=== PATIENT | male | born 1935 | race Two or more races ===

== ENCOUNTER → 2016-12-01 | Outpatient (CLI) | payer MEDICARE | LOC: OD 11:29 | PROVIDERS: ATTEND Physician Assistant | DX: J44.9 Chronic obstructive pulmonary disease, unspecified (principal) | CPT/HCPCS: 71020 ==

== ENCOUNTER → 2017-04-26 | Outpatient (CLI) | payer OTHER ==
[2017-04-26 17:53] LABS: ABSOLUTE BASOPHILS # (AUTO) 0.1 10^3/uL (0.0-0.2); ABSOLUTE EOSINOPHILS # (AUTO) 0.3 10^3/uL (0.0-0.6); ABSOLUTE LYMPHOCYTES (AUTO) 2.4 10^3/uL (0.5-4.7); ABSOLUTE MONOCYTES (AUTO) 1.1 10^3/uL (0.1-1.4); ABSOLUTE NEUT (AUTO) 7.4 10^3/uL (1.7-8.2); BASOPHILS % (AUTO) 0.7 % (0-2); EOSINOPHILS % (AUTO) 2.5 % (0-6); HEMATOCRIT 44.1 % (37.9-51.0); HEMOGLOBIN 14.4 g/dL (13.5-17.0); HGB HCT DIFFERENCE -0.9; LYMPHOCYTES % (AUTO) 21.2 % (13-45); MEAN CORPUSCULAR HEMOGLOBIN 31.1 pg (27.0-33.4); MEAN CORPUSCULAR HGB CONC 32.7 g/dL (32.0-36.0); MEAN CORPUSCULAR VOLUME 95 fl (80-97); MONOCYTES % (AUTO) 9.7 % (3-13); RED BLOOD COUNT 4.63 10^6/uL (4.35-5.55); RED CELL DISTRIBUTION WIDTH 14.6 % (11.5-14.0); SEGMENTED NEUTROPHILS % (AUTO) 65.9 % (42-78); WHITE BLOOD COUNT 11.2 10^3/uL (4.0-10.5)
--- NOTE | 2017-04-26 18:05 | RADIOLOGY REPORT (SQ) ---
EXAM DESCRIPTION: FOOT LEFT COMPLETE COMPLETED DATE/TIME: 04/26/2017 5:23 pm REASON FOR STUDY: PAIN IN LEFT FOOT M79.672 PAIN IN LEFT FOOT COMPARISON: None. NUMBER OF VIEWS: Three views. TECHNIQUE: AP, lateral and oblique radiographic images acquired of the left foot. LIMITATIONS: None. FINDINGS: MINERALIZATION: Normal. BONES: No acute fracture or dislocation. No worrisome bone lesions. JOINTS: No effusions. SOFT TISSUES: No soft tissue swelling. No foreign body. OTHER: No other significant finding. IMPRESSION: NEGATIVE STUDY OF THE LEFT FOOT. NO RADIOGRAPHIC EVIDENCE OF ACUTE INJURY. TECHNICAL DOCUMENTATION: JOB ID: [id number] [employer]- All Rights Reserved
[2017-04-26 18:12] LABS: ANION GAP 8 (5-19); BLOOD UREA NITROGEN 24 mg/dL (7-20); CALCIUM 10.3 mg/dL (8.4-10.2); CARBON DIOXIDE 30 mmol/L (22-30); CHLORIDE 101 mmol/L (98-107); CREATININE RESULT 1.15 mg/dL (0.52-1.25); GLUCOSE 85 mg/dL (75-110); POTASSIUM 4.7 mmol/L (3.6-5.0); SODIUM 139.2 mmol/L (137-145); URIC ACID 6.8 mg/dL (3.5-8.5)
== END ==
LOC: OD 16:56
PROVIDERS: ATTEND Family Medicine
DX: M79.672 Pain in left foot (principal)
CPT/HCPCS: 36415; 80048; 84550; 85025

== ENCOUNTER → 2017-07-21 | Outpatient (CLI) | payer OTHER ==
--- NOTE | 2017-07-21 12:14 | RADIOLOGY REPORT (SQ) ---
EXAM DESCRIPTION: HIP RIGHT AP/LATERAL COMPLETED DATE/TIME: 07/21/2017 12:05 pm REASON FOR STUDY: PAIN IN RIGHT HIP M25.551 PAIN IN RIGHT HIP COMPARISON: None. NUMBER OF VIEWS: Two views. TECHNIQUE: AP pelvis and additional frog-leg view of the right hip. LIMITATIONS: None. FINDINGS: MINERALIZATION: Normal. RIGHT HIP: No fracture or dislocation. No worrisome bone lesions. LEFT HIP: No fracture or dislocation. No worrisome bone lesions. PUBIS AND ISCHIUM: No fracture. PELVIS: No fracture. SACRUM: No fracture or dislocation. No worrisome bone lesions. LOWER LUMBAR SPINE: No fracture or dislocation. No worrisome bone lesions. No significant disc disea se. SOFT TISSUES: No findings. OTHER: No other significant finding. IMPRESSION: NEGATIVE STUDY OF THE RIGHT HIP. NO RADIOGRAPHIC EVIDENCE OF ACUTE INJURY. TECHNICAL DOCUMENTATION: JOB ID: [id number] [employer]- All Rights Reserved
--- NOTE | 2017-07-21 12:15 | RADIOLOGY REPORT (SQ) ---
EXAM DESCRIPTION: FEMUR RIGHT COMPLETED DATE/TIME: 07/21/2017 12:05 pm REASON FOR STUDY: PAIN IN RIGHT HIP M25.551 PAIN IN RIGHT HIP COMPARISON: None. NUMBER OF VIEWS: Two views. TECHNIQUE: Two radiographic images acquired of the right femur to include hip and knee in at least o ne projection. LIMITATIONS: None. FINDINGS: MINERALIZATION: Normal. BONES: No acute fracture. No worrisome bone lesions. SOFT TISSUES: No obvious swelling or foreign body. OTHER: No other significant finding. IMPRESSION: NEGATIVE STUDY OF THE RIGHT FEMUR. NO RADIOGRAPHIC EVIDENCE OF ACUTE INJURY. TECHNICAL DOCUMENTATION: JOB ID: [id number] [employer]- All Rights Reserved
== END ==
LOC: OD 11:33
PROVIDERS: ATTEND Family Medicine
DX: M25.551 Pain in right hip (principal)

== ENCOUNTER → 2017-08-08 | Outpatient (CLI) | payer MEDICARE ==
--- NOTE | 2017-08-08 13:58 | RADIOLOGY REPORT (SQ) ---
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 TECHNIQUE: CT scan of the chest performed using helical scanning technique with dynamic intravenous contrast injection. Images reviewed with lung, soft tissue and bone windows. Reconstructed coronal and sagittal MPR images reviewed. Additional 3 dimensional post-processing performed to develop Maximal Intensity Projection images (GA P). All images stored on PACS. All CT scanners at this facility use dose modulation, iterative reconstruction, and/or weight based d osing when appropriate to reduce radiation dose to as low as reasonably achievable (ALARA). [facility]: Dose Right [facility]: CareDose [facility]: Dose Right [facility]: Teradose 4D [facility]: Zin.gl CONTRAST TYPE AND DOSE: See combined report. Contrast bolus optimized for the aorta. RENAL FUNCTION: See combined report. RADIATION DOSE: . LIMITATIONS: Motion. FINDINGS: LUNGS AND PLEURA: Paraseptal emphysema. No suspicious nodules. AORTA AND GREAT VESSELS: Dilated ascending aorta 4.4 cm. No dissection. HEART: No pericardial effusion. No significant coronary artery calcifications. PULMONARY ARTERIES: No emboli visualized in the main pulmonary arteries or the segmental branches. HILAR AND MEDIASTINAL STRUCTURES: No identified masses or abnormal nodes. HARDWARE: None in the chest. UPPER ABDOMEN: See separate report of the CT of the abdomen. THYROID AND OTHER SOFT TISSUES: No masses. No adenopathy. BONES: No acute or significant finding. 3D MIPS: Confirm above findings. OTHER: No other significant finding. IMPRESSION: Dilated ascending aorta 4.4 cm. No dissection. COMMENT: Quality ID # 436: Final reports with documentation of one or more dose reduction techniques (e.g., Automated exposure control, adjustment of the mA and/or kV according to patient size, use of iterative reconstruction technique) TECHNICAL DOCUMENTATION: JOB ID: [id number] [employer]- All Rights Reserved
--- NOTE | 2017-08-08 14:12 | RADIOLOGY REPORT (SQ) ---
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 TECHNIQUE: CT scan of the abdominal aorta extending to the iliac bifurcation performed with intraven ous contrast using helical scanning technique with dynamic intravenous contrast injection. Images rev iewed with lung, soft tissue, and bone windows. Reconstructed coronal and sagittal MPR images reviewe d. All images stored on PACS. Advanced 3D imaging as volume rendering, MIPS, SSD performed? yes All CT scanners at this facility use dose modulation, iterative reconstruction, and/or weight based d osing when appropriate to reduce radiation dose to as low as reasonably achievable (ALARA). [facility]: Dose Right [facility]: CareDose [facility]: Dose Right [facility]: Teradose 4D [facility]: [employer] CONTRAST TYPE AND DOSE: contrast/concentration: Isovue 370.00 mg/ml; Total Contrast Delivered: 50.0 ml; Total Saline Delivered: 75.0 ml RENAL FUNCTION: Creatinine 1.3 LIMITATIONS: None. FINDINGS: AORTA AND VESSELS: 3 cm infrarenal aortic aneurysm. Right common iliac artery 1.6 cm. LUNG BASES: See separate report. LIVER: Normal size. No masses or dilated ducts. SPLEEN: Normal size. No focal lesions. PANCREAS: No masses. No significant calcifications. No adjacent inflammation or peripancreatic fluid collections. Pancreatic duct not dilated. GALLBLADDER: Surgically absent. ADRENAL GLANDS: No significant masses or asymmetry. RIGHT KIDNEY AND URETER: Previously described angiomyolipoma now measures about 5.3 cm. Cortical cys ts lower pole. LEFT KIDNEY AND URETER: No mass, calculi or urinary tract obstruction. RETROPERITONEUM: No retroperitoneal adenopathy, hemorrhage or masses. BOWEL AND PERITONEAL CAVITY: No masses or inflammatory changes. No free fluid or peritoneal masses. APPENDIX: Surgically absent. ABDOMINAL WALL: No masses. No hernias. BONY STRUCTURES: No significant or acute findings. 3-D IMAGING: Confirms the above findings. OTHER: No other significant finding. IMPRESSION: 1. 3 cm infrarenal aortic aneurysm. 2. 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 Urology consultation might be considered. TECHNICAL DOCUMENTATION: JOB ID: [id number] Quality ID # [id number]: Final reports with documentation of one or more dose reduction techniques (e.g., Au tomated exposure control, adjustment of the mA and/or kV according to patient size, use of iterative reconstruction technique) 2010 [employer]- All Rights Reserved
== END ==
LOC: RAD 11:34
PROVIDERS: ATTEND Family Medicine
DX: I71.2 Thoracic aortic aneurysm, without rupture (principal)
CPT/HCPCS: 71275; 74174

== ENCOUNTER 2017-10-28 15:45 | Emergency (ER) | payer MEDICARE ==
[2017-10-28 15:58] VITALS: BP 173/91
--- NOTE | 2017-10-28 16:15 | ER Document Report ---
HPI - HPI Patient complains to provider of: Right hip pain Onset: Other Quality of pain: Achy - 3 months, Burning, Throbbing Pain Level: 5 Context: 82-year-old male patient of Dr. Cheatham complaining of lateral right hip pain which radiates to posterior left thigh. It started 3 months ago. Physical therapy 5 visits resolved the pain but it reoccurred last week. He saw Dr. Cheatham yesterday who ordered a hip x-ray which he has not done yet and prescribed tramadol and Flexeril which did not help last night. There has been no injury. 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 He had a renal ultrasound to the hospital today. No fever. No rash. No saddle anesthesia. Associated Symptoms: None Exacerbated by: Movement Relieved by: Denies Similar symptoms previously: Yes Recently seen / treated by doctor: Yes - ROS ROS below otherwise negative: Yes Systems Reviewed and Negative: Yes All other systems reviewed and negative - MUSCULOSKELETAL Musculoskeletal: REPORTS: Extremity pain Past Medical History - General Information source: Patient, Relative - Son - Social History Smoking Status: Current Every Day Smoker Frequency of alcohol use: None Drug Abuse: None Lives with: Family Family History: Reviewed & Not Pertinent Patient has suicidal ideation: No Patient has homicidal ideation: No Pulmonary Medical History: Reports: Hx COPD Renal/ Medical History: Reports: Other - Right benign renal tumor. Denies: Hx Peritoneal Dialysis Surgical Hx: Negative Vertical Provider Document - CONSTITUTIONAL Agree With Documented VS: Yes Exam Limitations: No Limitations General Appearance: No Apparent Distress - INFECTION CONTROL TRAVEL OUTSIDE OF THE [place] IN LAST 30 DAYS: No - NECK Neck: Supple - RESPIRATORY Respiratory: Breath Sounds Normal, No Respiratory Distress O2 Sat by Pulse Oximetry: 97 - CARDIOVASCULAR Cardiovascular: Regular Rate, Regular Rhythm - GI/ABDOMEN Gastrointestinal: Abdomen Soft, Abdomen Non-Tender - MUSCULOSKELETAL/EXTREMETIES Musculoskeletal/Extremeties: MAEW, FROM, Tender - laeteral right hip soft tissue above the great trochantur - NEURO Level of Consciousness: Awake, Alert Motor/Sensory: No Motor Deficit, No Sensory Deficit Notes: DP pulses 1+ bilateral, n/v intact. - DERM Integumentary: Warm, Dry, No Rash Course - Re-evaluation Re-evalutation: 10/28/17 17:27 basically negative hip xray, minimal joint space narrowing both hips. mild l spine arthritis . 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
--- NOTE | 2017-10-28 17:06 | RADIOLOGY REPORT (SQ) ---
EXAM DESCRIPTION: HIP RIGHT AP/LATERAL COMPLETED DATE/TIME: 10/28/2017 4:49 pm REASON FOR STUDY: right hip pain COMPARISON: 07/21/2017 NUMBER OF VIEWS: Two views. TECHNIQUE: AP pelvis and additional frog-leg view of the right hip. LIMITATIONS: None. FINDINGS: MINERALIZATION: Normal. RIGHT HIP: No fracture or dislocation. No worrisome bone lesions. Minimal joint space loss centrall y. No other significant arthritic change. LEFT HIP: No fracture or dislocation. No worrisome bone lesions. Minimal central joint space loss. No other significant arthritic change. PUBIS AND ISCHIUM: No fracture. PELVIS: No fracture. SACRUM: No fracture or dislocation. No worrisome bone lesions. LOWER LUMBAR SPINE: No fracture or dislocation. No worrisome bone lesions. Mild degenerative changes involving the lower lumbar. SOFT TISSUES: No findings. OTHER: No other significant finding. IMPRESSION: 1. Minimal central joint space loss otherwise negative right hip. 2. Mild degenerative changes involving the lower lumbar spine. TECHNICAL DOCUMENTATION: JOB ID: [id number] [employer]- All Rights Reserved Reading location - IP/workstation name: [email or web address]
[2017-10-28] MEDS ORDERED: HYDROCODONE/ACETAMINOPHEN 5-325 MG TABLET PO ONE (17:27)
== END 2017-10-28 17:53 | disposition home or self-care (01) ==
LOC: ER 15:45
DX: M25.551 Pain in right hip (principal); M46.96 Unspecified inflammatory spondylopathy, lumbar region; M16.0 Bilateral primary osteoarthritis of hip; M79.652 Pain in left thigh; Z79.899 Other long term (current) drug therapy; F17.200 Nicotine dependence, unspecified, uncomplicated
CPT/HCPCS: 99283; 73502; A9270

== ENCOUNTER → 2017-10-28 | Outpatient (CLI) | payer MEDICARE ==
--- NOTE | 2017-10-28 17:31 | RADIOLOGY REPORT (SQ) ---
EXAM DESCRIPTION: U/S RETROPERITON (RENAL/AORTA) COMPLETED DATE/TIME: 10/28/2017 3:59 pm REASON FOR STUDY: R94.4 ABNORMAL RESULTS OF KIDNEY FUNCTION STUDIES R94.4 ABNORMAL RESULTS OF KIDNE Y FUNCTION STUDIES COMPARISON: CT abdomen dated 08/08/2017 and MRI kidneys dated 12/14/2007. TECHNIQUE: Dynamic and static grayscale images acquired of the kidneys and bladder and recorded on P ACS. Additional selected color Doppler and spectral images recorded. LIMITATIONS: None. FINDINGS: RIGHT KIDNEY: Normal size. Normal echogenicity. Large echogenic mass measuring 7.7 cm . Multiple anechoic cysts, the largest measuring 4.0 cm. No hydronephrosis. No calcifications. LEFT KIDNEY: Normal size. Normal echogenicity. Multiple anechoic cysts, the largest measuring 1. 2 cm. No hydronephrosis. No calcifications. BLADDER: No masses. OTHER FINDINGS: No other significant finding. IMPRESSION: 1. 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 THIS MASS CONTINUES INCREASED IN SIZ E. CURRENTLY THE MASS MEASURES 7.7 CM WITH PRIOR MEASUREMENT IN AUGUST 2017 OF 5.3 CM. IF NOT PRE VIOUSLY DONE, UROLOGIC CONSULTATION SHOULD BE CONSIDERED. 2. MULTIPLE CORTICAL CYSTS IN BOTH KIDNEYS. 3. NO HYDRONEPHROSIS. TECHNICAL DOCUMENTATION: JOB ID: [id number] [employer]- All Rights Reserved Reading location - IP/workstation name: [email or web address]
== END ==
LOC: RAD 15:58
PROVIDERS: ATTEND Family Medicine
DX: D17.71 Benign lipomatous neoplasm of kidney (principal); Q61.02 Congenital multiple renal cysts
CPT/HCPCS: 76770

== ENCOUNTER 2017-11-10 17:23 | Emergency (ER) | payer MEDICARE ==
--- NOTE | 2017-11-10 17:55 | ER Document Report ---
ED Medical Screen (RME) - General Chief Complaint: Dizziness Stated Complaint: POSSIBLE STROKE Time Seen by Provider: 11/10/17 17:32 Notes: RME DISCLOSURE I have seen this patient as part of a Rapid Medical Evaluation and, if applicable, placed any initially appropriate orders. The patient will be seen and fully evaluated, including a full history and physical exam, by a provider ( in Main ED or Fast Track) when a room becomes available. 82M sent over here from Dr Cody Linares's office for stroke evaluation. Pt family states he has had RUE weakness since yesterday so when they saw Dr Meredith Linares in the office today, he had concern for a stroke and sent them here to ED. TRAVEL OUTSIDE OF THE U.S[place] IN LAST 30 DAYS: No - Related Data Allergies/Adverse Reactions: No Known Allergies Allergy (Unverified 11/10/17 17:26) Past Medical History Pulmonary Medical History: Reports: Hx COPD Physical Exam - Vital signs Vitals: Temp Pulse Resp BP Pulse Ox 97.7 F 70 16 163/94 H 96 11/10/17 17:37 11/10/17 17:37 11/10/17 17:37 11/10/17 17:37 11/10/17 17:37 Course - Vital Signs Vital signs: Temp Pulse Resp BP Pulse Ox 97.7 F 70 16 163/94 H 96 11/10/17 17:37 11/10/17 17:37 11/10/17 17:37 11/10/17 17:37 11/10/17 17:37
--- NOTE | 2017-11-10 18:30 | RADIOLOGY REPORT (SQ) ---
EXAM DESCRIPTION: CT HEAD WITHOUT COMPLETED DATE/TIME: 11/10/2017 6:09 pm REASON FOR STUDY: RUE weakness COMPARISON: None. TECHNIQUE: Axial images acquired through the brain without intravenous contrast. Images reviewed wi th bone, brain and subdural windows. Images stored on PACS. All CT scanners at this facility use dose modulation, iterative reconstruction, and/or weight based d osing when appropriate to reduce radiation dose to as low as reasonably achievable (ALARA). [facility]: Dose Right [facility]: CareDose [facility]: Dose Right [facility]: Teradose 4D [facility]: Smart [employer] RADIATION DOSE: CT Rad equipment meets quality standard of care and radiation dose reduction techniq ues were employed. CTDIvol: 64.6 mGy. DLP: 1163 mGy-cm. mGy. LIMITATIONS: None. FINDINGS: VENTRICLES: Prominent. CEREBRUM: No masses. No hemorrhage. No midline shift. Areas of low density in the white matter mos t likely due to chronic micro-vascular ischemic change. No evidence for acute infarction. CEREBELLUM: No masses. No hemorrhage. No alteration of density. There is a small focal relative lo w density area at the level of the brainstem on the left which could represent a small lacunar infarc t. EXTRAAXIAL SPACES: Mild age-related involutional change. No fluid collections. No masses. ORBITS AND GLOBE: No intra- or extraconal masses. Normal contour of globe without masses. CALVARIUM: No fracture. PARANASAL SINUSES: No fluid or mucosal thickening. SOFT TISSUES: No mass or hematoma. OTHER: No other significant finding. IMPRESSION: MILD CHRONIC CHANGES OF ATROPHY AND MICROVASCULAR ISCHEMIA. There is a small focal rela tive low density area at the level the brainstem on the left which could represent a small lacunar in farct. Other findings as noted above EVIDENCE OF ACUTE STROKE: NO. TECHNICAL DOCUMENTATION: JOB ID: [id number] Quality ID # [id number]: Final reports with documentation of one or more dose reduction techniques (e.g., Au tomated exposure control, adjustment of the mA and/or kV according to patient size, use of iterative reconstruction technique) 2010 [employer]- All Rights Reserved Reading location - IP/workstation name: [email or web address]
[2017-11-10 18:56] LABS: ABSOLUTE BASOPHILS # (AUTO) 0.1 10^3/uL (0.0-0.2); ABSOLUTE EOSINOPHILS # (AUTO) 0.3 10^3/uL (0.0-0.6); ABSOLUTE LYMPHOCYTES (AUTO) 2.2 10^3/uL (0.5-4.7); ABSOLUTE MONOCYTES (AUTO) 1.1 10^3/uL (0.1-1.4); ABSOLUTE NEUT (AUTO) 7.8 10^3/uL (1.7-8.2); BASOPHILS % (AUTO) 0.5 % (0-2); EOSINOPHILS % (AUTO) 2.3 % (0-6); HEMATOCRIT 43.5 % (37.9-51.0); HEMOGLOBIN 14.1 g/dL (13.5-17.0); LYMPHOCYTES % (AUTO) 19.3 % (13-45); MEAN CORPUSCULAR HEMOGLOBIN 30.1 pg (27.0-33.4); MEAN CORPUSCULAR HGB CONC 32.4 g/dL (32.0-36.0); MEAN CORPUSCULAR VOLUME 93 fl (80-97); MONOCYTES % (AUTO) 9.6 % (3-13); PLATELET COUNT 181 10^3/uL (150-450); RED BLOOD COUNT 4.68 10^6/uL (4.35-5.55); RED CELL DISTRIBUTION WIDTH 14.6 % (11.5-14.0); SEGMENTED NEUTROPHILS % (AUTO) 68.3 % (42-78); TOTAL CELLS COUNTED % (AUTO) 100 %; WHITE BLOOD COUNT 11.5 10^3/uL (4.0-10.5)
[2017-11-10 19:14] LABS: INTERNATIONAL RATION (INR) 0.92
[2017-11-10 19:15] LABS: PARTIAL THROMBOPLASTIN TIME 36.8 SEC (23.5-35.8)
--- NOTE | 2017-11-10 19:24 | ER Document Report ---
ED General - General Chief Complaint: Dizziness Stated Complaint: POSSIBLE STROKE Time Seen by Provider: 11/10/17 17:32 Information source: Patient, Relative - Patient's daughter TRAVEL OUTSIDE OF THE U.[place] IN LAST 30 DAYS: No - HPI Patient complains to provider of: Off balance/decreased sensation and strength right upper extremity Onset: Yesterday - 6 PM Onset/Duration: Gradual Quality of pain: No pain Associated symptoms: Other - Patient was ambulating with a cane and fell once last night no LOC Exacerbated by: Movement Relieved by: Denies Similar symptoms previously: No Recently seen / treated by doctor: No - MD Dr. Musa Kidd Notes: Patient has been off balance since 6:00 last night. He ambulates with a cane because of right lower extremity weakness which is been chronic for the last few months. Patient fell once last night no loss of consciousness. He also complains of right upper extremity weakness and decreased sensation. A few months back patient had a tumor removed from 1 of his kidneys at [facility]. Since then his right lower extremity weakness has increased. Patient does smoke on a continuous basis and has for many years. He had a remote stroke in the past while he was living in [place] he has no residual deficits from that. Patient has a history of hypertension. - Related Data Allergies/Adverse Reactions: No Known Allergies Allergy (Unverified 11/10/17 17:26) Past Medical History - General Information source: Patient, Relative, [facility] Records - Social History Smoking Status: Current Every Day Smoker Cigarette use (# per day): Yes Smoking Education Provided: Yes Frequency of alcohol use: None Drug Abuse: None Lives with: Family Family History: Hypertension Patient has suicidal ideation: No Patient has homicidal ideation: No - Past Medical History Cardiac Medical History: Reports: Hx Hypercholesterolemia, Hx Hypertension, Other - 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 Neurological Medical History: Reports: Hx Cerebrovascular Accident Endocrine Medical History: Reports: Hx Diabetes Mellitus Type 2, Other - angiomyolipoma right kidney Renal/ Medical History: Reports: Other - Mass on 1 of his kidneys. Denies: Hx Peritoneal Dialysis Malignancy Medical History: Reports None GI Medical History: Reports: None Musculoskeltal Medical History: Reports Hx Muscle Weakness - Right lower extremity Skin Medical History: Reports None Psychiatric Medical History: Reports: None Traumatic Medical History: Reports: None Past Surgical History: Reports: Other - Surgery for renal mass approximately 2 months ago - Immunizations History of Influenza Vaccine for 06/2017 - 11/2017 Season: Yes Review of Systems - Review of Systems Constitutional: See HPI EENT: No symptoms reported Cardiovascular: No symptoms reported Respiratory: No symptoms reported Gastrointestinal: No symptoms reported Genitourinary: No symptoms reported Male Genitourinary: No symptoms reported Skin: No symptoms reported Hematologic/Lymphatic: No symptoms reported Neurological/Psychological: Other - Off balance Physical Exam - Vital signs Vitals: Temp Pulse Resp BP Pulse Ox 97.7 F 70 16 163/94 H 96 11/10/17 17:37 11/10/17 17:37 11/10/17 17:37 11/10/17 17:37 11/10/17 17:37 - Notes Notes: PHYSICAL EXAMINATION: GENERAL: Well-appearing, well-nourished and in no acute distress. HEAD: Atraumatic, normocephalic. EYES: Pupils equal round and reactive to light, extraocular movements intact, sclera anicteric, conjunctiva are normal. No nystagmus ENT: Nares patent, oropharynx clear without exudates. Moist mucous membranes. NECK: Normal range of motion, supple without lymphadenopathy LUNGS: Breath sounds clear to auscultation bilaterally and equal. No wheezes rales or rhonchi. HEART: Regular rate and rhythm ABDOMEN: Soft, nontender, nondistended abdomen. No guarding, no rebound. No masses appreciated. Musculoskeletal: Normal range of motion, no pitting or edema. No cyanosis. NEUROLOGICAL: Cranial nerves grossly intact. Normal speech. Decreased sensation to patient's right upper extremity. 5 out of 5 strength bilateral upper extremities in the left lower extremity. Right lower extremity has 4-5 strength. NIH stroke scale is 1. PSYCH: Normal mood, normal affect. SKIN: Warm, Dry, normal turgor, no rashes or lesions noted. Course - Re-evaluation Re-evalutation: 11/10/17 21:22 Labs- All tests 24 hr 11/10/17 11/10/17 11/10/17 18:20 18:20 18:20 WBC 11.5 H RBC 4.68 Hgb 14.1 Hct 43.5 MCV 93 MCH 30.1 MCHC 32.4 RDW 14.6 H Plt Count 181 Seg Neutrophils % 68.3 Lymphocytes % 19.3 Monocytes % 9.6 Eosinophils % 2.3 Basophils % 0.5 Absolute Neutrophils 7.8 Absolute Lymphocytes 2.2 Absolute Monocytes 1.1 Absolute Eosinophils 0.3 Absolute Basophils 0.1 PT 13.0 INR 0.92 APTT 36.8 H Sodium 142.7 Potassium 4.8 Chloride 103 Carbon Dioxide 31 H Anion Gap 9 BUN 23 H Creatinine 1.21 Est GFR ( Amer) > 60 Est GFR (Non-Af Amer) 58 L Glucose 78 Calcium 10.3 H Troponin I 11/10/17 18:20 WBC RBC Hgb Hct MCV MCH MCHC RDW Plt Count Seg Neutrophils % Lymphocytes % Monocytes % Eosinophils % Basophils % Absolute Neutrophils Absolute Lymphocytes Absolute Monocytes Absolute Eosinophils Absolute Basophils PT INR APTT Sodium Potassium Chloride Carbon Dioxide Anion Gap BUN Creatinine Est GFR ( Amer) Est GFR (Non-Af Amer) Glucose Calcium Troponin I < 0.[address] 11/10/17 17:50 IMPRESSION: MILD CHRONIC CHANGES OF ATROPHY AND MICROVASCULAR ISCHEMIA. There is a small focal relative low density area at the level the brainstem on the left which could represent a small lacunar infarct. Other findings as noted above EVIDENCE OF ACUTE STROKE: NO. Head MRI 11/10/17 19:05 IMPRESSION: ATROPHY AND CHRONIC MICRO-VASCULAR ISCHEMIC CHANGES. 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 EVIDENCE OF ACUTE STROKE: NO. Pt. ambulatory down harkins without difficulty or needing assist. BP 159/95. Discharged home with follow-up with his primary medical doctor in the next few days. - Vital Signs Vital signs: Temp Pulse Resp BP Pulse Ox 97.7 F 67 16 159/95 H 97 11/10/17 17:37 11/10/17 18:59 11/10/17 19:02 11/10/17 20:54 11/10/17 19:02 - Laboratory Result Diagrams: 11/10/17 18:20 11/10/17 18:20 Laboratory results interpreted by me: 11/10/17 11/10/17 11/10/17 18:20 18:20 18:20 WBC 11.5 H RDW 14.6 H APTT 36.8 H Carbon Dioxide 31 H BUN 23 H Est GFR (Non-Af Amer) 58 L Calcium 10.3 H - Diagnostic Test Radiology reviewed: Image reviewed, Reports reviewed Discharge - Discharge Clinical Impression: Right leg weakness Condition: Stable Disposition: HOME, SELF-CARE Instructions: High Blood Pressure ([facility]) Additional Instructions: Follow up with your physician tomorrow for further care or return to the ED IMMEDIATELY if symptoms worsen or new concerns occur. If you cannot afford to follow up with your primary care physician a list of low cost clinics have been provided at the end of your discharge papers as well. Forms: Elevated Blood Pressure Referrals: CARLA KIDD MD [Primary Care Provider] - Follow up in 3-5 days
[2017-11-10 19:54] LABS: ANION GAP 9 (5-19); BLOOD UREA NITROGEN 23 mg/dL (7-20); CALCIUM 10.3 mg/dL (8.4-10.2); CARBON DIOXIDE 31 mmol/L (22-30); CHLORIDE 103 mmol/L (98-107); GLUCOSE 78 mg/dL (75-110); POTASSIUM 4.8 mmol/L (3.6-5.0); SODIUM 142.7 mmol/L (137-145)
--- NOTE | 2017-11-10 20:22 | RADIOLOGY REPORT (SQ) ---
EXAM DESCRIPTION: MRI HEAD WITHOUT COMPLETED DATE/TIME: 11/10/2017 8:05 pm REASON FOR STUDY: ataxia/abn ct head COMPARISON: CT dated 11/10/2017. TECHNIQUE: Multiplanar imaging includes non-contrasted T1, T2, FLAIR, and diffusion with ADC map seq uences. Images stored on PACS. LIMITATIONS: None. FINDINGS: ANATOMY: No anomalies. Normal vascular flow voids. Pituitary fossa normal. CSF SPACES: Atrophy induced prominence of ventricles and CSF spaces. CEREBRUM: High signal intensity lesions scattered throughout the white matter on FLAIR imaging with d istribution suggesting micro-vascular ischemic changes. No evidence of hemorrhage, mass, or extraaxi al fluid collection. POSTERIOR FOSSA: No signal alteration. No hemorrhage. Small old focal lacunar infarct in the left si de of the joana. No edema, masses or mass effect. Internal auditory canals, cerebello-pontine angles , mastoids normal. DIFFUSION IMAGING: Negative for acute or sub-acute infarction. ORBITS: No masses. Globes normal. PARANASAL SINUSES: No fluid levels. Mucosa normal. OTHER: No other significant finding. IMPRESSION: ATROPHY AND CHRONIC MICRO-VASCULAR ISCHEMIC CHANGES. 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 EVIDENCE OF ACUTE STROKE: NO. TECHNICAL DOCUMENTATION: JOB ID: [id number] [employer]- All Rights Reserved Reading location - IP/workstation name: [email or web address]
[2017-11-10] MEDS ORDERED: AMLODIPINE BESYLATE 5 MG TABLET PO ONE (21:38)
[2017-11-10] MEDS ORDERED: HYDROCODONE/ACETAMINOPHEN 5-325 MG TABLET PO ONE (21:38)
[2017-11-10 21:54] VITALS: BP 152/82
== END 2017-11-10 21:54 | disposition home or self-care (01) ==
LOC: ER 17:23
DX: R53.1 Weakness (principal); R42 Dizziness and giddiness; R20.8 Other disturbances of skin sensation; R26.81 Unsteadiness on feet; I10 Essential (primary) hypertension; F17.210 Nicotine dependence, cigarettes, uncomplicated; J44.9 Chronic obstructive pulmonary disease, unspecified; E11.9 Type 2 diabetes mellitus without complications; Z86.73 Personal history of transient ischemic attack (TIA), and cerebral infarction without residual deficits; Z98.890 Other specified postprocedural states
CPT/HCPCS: 99284; 36415; 85025; 85610; 85730; 80048; 84484; 70551; 70450; A9270 ×2

== ENCOUNTER 2018-02-14 09:00 | Emergency (ER) | payer MEDICARE ==
[2018-02-14] MEDS ORDERED: IPRATROPIUM/ALBUTEROL 0.5-2.5 MG/3 ML AMPUL NEB ONE ×2 (09:46→14:26)
--- NOTE | 2018-02-14 09:47 | ER Document Report ---
ED Medical Screen (RME) - General Chief Complaint: Abnormal Lab Results Stated Complaint: ABNORMAL LAB VALUES Time Seen by Provider: 02/14/18 09:45 TRAVEL OUTSIDE OF THE U.S. IN LAST 30 DAYS: Yes COUNTRY TRAVELED TO/FROM: [place] - [facility] Notes: 02/14/18 09:46 Patient was sick in the [place] family brought him to the [place] recently saw Dr. Kidd in the last few weeks has 2 sets of blood work drawn with the last one showing elevation in his white count was referred to the ER for further evaluation due to the elevation in white count stool samples have been sent because of diarrhea and no results yet patient does have a history of COPD. No fever states warm feeling patient looks nontoxic and or any - Related Data Allergies/Adverse Reactions: No Known Allergies Allergy (Verified 02/14/18 09:01) Past Medical History - Past Medical History Cardiac Medical History: Reports: Hx Hypercholesterolemia, Hx Hypertension Pulmonary Medical History: Reports: Hx COPD Neurological Medical History: Reports: Hx Cerebrovascular Accident Endocrine Medical History: Reports: Hx Diabetes Mellitus Type 2 Renal/ Medical History: Denies: Hx Peritoneal Dialysis Musculoskeltal Medical History: Reports Hx Muscle Weakness - Right lower extremity Past Surgical History: Reports: Other - Surgery for renal mass approximately 2 months ago - Immunizations History of Influenza Vaccine for 06/2017 - 11/2017 Season: Yes Review of Systems - Review of Systems Constitutional: Other - Elevation white count Physical Exam - Vital signs Vitals: Temp Pulse Resp BP Pulse Ox 98.9 F 88 24 H 123/83 89 L 02/14/18 09:04 02/14/18 09:04 02/14/18 09:04 02/14/18 09:04 02/14/18 09:04 - Respiratory Respiratory status: No respiratory distress Chest status: Nontender Breath sounds: Wheezing Chest palpation: Normal Course - Vital Signs Vital signs: Temp Pulse Resp BP Pulse Ox 98.9 F 88 24 H 123/83 89 L 02/14/18 09:04 02/14/18 09:04 02/14/18 09:04 02/14/18 09:04 02/14/18 09:04 Doctor's Discharge - Discharge Referrals: CHEY KIDD MD [Primary Care Provider] - Follow up as needed
[2018-02-14] MEDS ORDERED: NORMAL SALINE 500 ML IV ONE (09:48)
--- NOTE | 2018-02-14 10:40 | RADIOLOGY REPORT (SQ) ---
EXAM DESCRIPTION: CHEST 2 VIEWS COMPLETED DATE/TIME: 02/14/2018 10:18 am REASON FOR STUDY: sob/copd COMPARISON: CTA chest 08/08/2017 Two-view chest 12/01/2016, 12/07/2010 EXAM PARAMETERS: NUMBER OF VIEWS: two views TECHNIQUE: Digital Frontal and Lateral radiographic views of the chest acquired. RADIATION DOSE: NA LIMITATIONS: none FINDINGS: LUNGS AND PLEURA: Lungs are hyperinflated and hyperlucent from obstructive disease. No fo dawood infiltrates. No pleural effusion. No pneumothorax. MEDIASTINUM AND HILAR STRUCTURES: No masses or contour abnormalities. HEART AND VASCULAR STRUCTURES: Heart normal size. No evidence for failure. BONES: Osteoporotic without thoracic compression deformity. HARDWARE: Clips right upper quadrant post cholecystectomy. OTHER: No other significant finding. IMPRESSION: Obstructive lung disease. No acute findings TECHNICAL DOCUMENTATION: JOB ID: [id number] [employer]- All Rights Reserved Reading location - IP/workstation name: [email or web address]
--- NOTE | 2018-02-14 11:32 | ER Document Report ---
ED General - General Mode of Arrival: Ambulatory Information source: Patient, Relative TRAVEL OUTSIDE OF THE U.S. IN LAST 30 DAYS: Yes COUNTRY TRAVELED TO/FROM: [place] <COLLIN PORTILLO - Last Filed: 02/14/18 17:57> <PRIYA HOWARD - Last Filed: 02/14/18 19:22> - General Chief Complaint: Abnormal Lab Results Stated Complaint: ABNORMAL LAB VALUES Time Seen by Provider: 02/14/18 09:45 Notes: Patient is a 82-year-old male with hypertension, diabetes type 2 ,COPD, and a history of ascending aortic aneurysm and AAA presents to the emergency department complaining of diarrhea, decreased appetite and intermittent right upper quadrant abdominal pain. Patient and son states the patient was visiting in the [place] and began to have diarrhea. Son states he took the patient to see a doctor in the [facility] where he had lab work performed. Son states the patient began to feel better for a short period of time before his symptoms of diarrhea and abdominal pain returned. He states he made the patient come back to the [facility] where he saw his PCP, Dr. Linares twice. Dr. Linares collected a stool sample (02/06/2018) and blood yesterday which found the patient to have elevated WBCs. Patient was then instructed to come to the emergency department due to Dr. Linares being out of town. At bedside patient denies any fevers, vomiting or current abdominal pain. Son also mentions the patient breathing heavier than normal. He states that he has given the patient nebulizers and albuterol treatments. (COLLIN PORTILLO) The patient's white blood cell count yesterday was 20,200 and on 02/06/2018 it was 9,800. Stool culture was sent off about a week ago, but they still do not have a result. (PRIYA HOWARD) - Related Data Allergies/Adverse Reactions: No Known Allergies Allergy (Verified 02/14/18 09:01) Past Medical History - General Information source: Patient, Relative - Social History Smoking Status: Current Every Day Smoker Chew tobacco use (# tins/day): No Frequency of alcohol use: None Drug Abuse: None Family History: Hypertension Patient has suicidal ideation: No Patient has homicidal ideation: No - Past Medical History Cardiac Medical History: Reports: Hx Hypercholesterolemia, Hx Hypertension, Other - AAA, Ascending aortic aneurysm (4.4). Pulmonary Medical History: Reports: Hx COPD Neurological Medical History: Reports: Hx Cerebrovascular Accident Endocrine Medical History: Reports: Hx Diabetes Mellitus Type 2 Musculoskeltal Medical History: Reports Hx Muscle Weakness - Right lower extremity Past Surgical History: Reports: Other - Surgery for renal mass approximately 2 months ago <COLLIN PORTILLO Last Filed: 02/14/18 17:57> Review of Systems - Review of Systems Constitutional: No symptoms reported EENT: No symptoms reported Cardiovascular: No symptoms reported Respiratory: See HPI Gastrointestinal: See HPI, Abdominal pain, Diarrhea. denies: Nausea, Vomiting Genitourinary: No symptoms reported Male Genitourinary: No symptoms reported Musculoskeletal: No symptoms reported Skin: No symptoms reported Hematologic/Lymphatic: No symptoms reported Neurological/Psychological: No symptoms reported -: Yes All other systems reviewed and negative <COLLIN PORTILLO Last Filed: 02/14/18 17:57> Physical Exam - General General appearance: Appears well, Alert In distress: None - HEENT Head: Normocephalic, Atraumatic Neck: Normal - Respiratory Respiratory status: No respiratory distress Chest status: Nontender Breath sounds: Rhonchi - Inspiratory and Expiratory, Wheezing - Inspiratory and Expiratory Chest palpation: Normal - Cardiovascular Pulses: Normal: Radial - Abdominal Inspection: Normal, Other - No palpable mass Distension: No distension Bowel sounds: Normal Tenderness: Nontender Organomegaly: No organomegaly - Back Back: Normal - Extremities General upper extremity: Normal ROM General lower extremity: Normal ROM - Neurological Neuro grossly intact: Yes - Psychological Associated symptoms: Normal affect, Normal mood - Skin Skin Temperature: Warm Skin Moisture: Dry Skin Color: Normal <COLLIN PORTILLO Last Filed: 02/14/18 17:57> - Vital signs Vitals: Temp Pulse Resp BP Pulse Ox 98.9 F 88 24 H 123/83 89 L 02/14/18 09:04 02/14/18 09:04 02/14/18 09:04 02/14/18 09:04 02/14/18 09:04 Course - Laboratory Result Diagrams: 02/14/18 12:00 02/14/18 12:00 <COLLIN PORTILLO Last Filed: 02/14/18 17:57> - Laboratory Result Diagrams: 02/14/18 12:00 02/14/18 12:00 - Diagnostic Test Radiology reviewed: Image reviewed, Reports reviewed - Contrast a CT scan of the chest shows enlarged heterogeneous right lobe of the thyroid which was not seen 6 months ago. Stable COPD and stable mild dilatation of the ascending aorta. 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 <PRIYA HOWARD - Last Filed: 02/14/18 19:22> - Re-evaluation Re-evalutation: 02/14/18 18:53 She has been here for approximately 8 hours and has not had any diarrhea. He reports his last diarrhea was at 3 PM yesterday afternoon. He does have an unexplained leukocytosis 02/14/18 19:15 Preliminary reports on the stool specimen provided in the office several days ago shows no ova, parasites, or cysts. No Salmonella or Shigella. Culture is still pending. Later history from the son is at the patient was started on Cipro yesterday in the office. He has not had any diarrhea since 3 PM yesterday. He has not been on any prednisone recently according to the son. His pulse ox was 89% on room air when he first arrived here. He has had 2 Duoneb treatments and at this time has a pulse ox of 94%-95%. The patient looks well, and states he feels well. His son has been giving the Brio and Spiriva every 2 hours for his wheezing and shortness of breath. I do have a nebulizer at home they can use but need prescriptions for albuterol. (PRIYA HOWARD) - Vital Signs Vital signs: Temp Pulse Resp BP Pulse Ox 98.9 F 88 17 139/90 H 94 02/14/18 09:04 02/14/18 09:04 02/14/18 19:00 02/14/18 17:01 02/14/18 19:00 - Laboratory Laboratory results interpreted by me: 02/14/18 02/14/18 02/14/18 10:55 12:00 12:00 WBC 19.1 H RBC 4.33 L Hgb 13.2 L RDW 14.3 H Seg Neutrophils % 83.3 H Lymphocytes % 7.0 L Absolute Neutrophils 15.9 H Absolute Monocytes 1.8 H BUN 22 H Creatinine 1.35 H Est GFR (Non-Af Amer) 51 L Urine Protein 30 H Discharge <COLLIN PORTILLO - Last Filed: 02/14/18 17:57> <PRIYA HOWARD - Last Filed: 02/14/18 19:22> - Discharge Clinical Impression: COPD with acute exacerbation Diarrhea Qualifiers: Diarrhea type: unspecified type Qualified Code(s): R19.7 - Diarrhea, unspecified Leukocytosis Qualifiers: Leukocytosis type: unspecified Qualified Code(s): D72.829 - Elevated white blood cell count, unspecified Condition: Stable Disposition: HOME, SELF-CARE Additional Instructions: Continue taking the Cipro as prescribed by your doctor yesterday. Give the albuterol and Atrovent breathing treatments as prescribed. Drink plenty of fluids. Follow-up in Dr. Linares's office this week if not improving. RETURN TO THE EMERGENCY ROOM IF ANY NEW OR WORSENING SYMPTOMS. Prescriptions: Albuterol Sulfate [Albuterol Sulfate 2.5mg/3 mL] 1 vial IH ASDIR PRN #50 vial PRN Reason: Ipratropium [place] [Atrovent 0.02% Neb 0.5 mg/2.5 ml Ampul] 0.5 mg NEB Q6 #30 vial.neb Referrals: CHEY LINARES MD [Primary Care Provider] - Follow up as needed Scribe Attestation: 02/14/18 14:43 I personally performed the services described in the documentation, reviewed and edited the documentation which was dictated to the scribe in my presence, and it accurately records my words and actions. (PRIYA HOWARD) Scribe Documentation - Scribe Written by Julia:: Julia Fuller, 02/14/2018 11:37 acting as scribe for :: Kalen <COLLIN PORTILLO - Last Filed: 02/14/18 17:57>
[2018-02-14 12:26] LABS: ABSOLUTE LYMPHOCYTES (AUTO) 1.3 10^3/uL (0.5-4.7); ABSOLUTE MONOCYTES (AUTO) 1.8 10^3/uL (0.1-1.4); ABSOLUTE NEUT (AUTO) 15.9 10^3/uL (1.7-8.2); BASOPHILS % (AUTO) 0.3 % (0-2); EOSINOPHILS % (AUTO) 0.2 % (0-6); HEMATOCRIT 40.6 % (37.9-51.0); HEMOGLOBIN 13.2 g/dL (13.5-17.0); MEAN CORPUSCULAR HEMOGLOBIN 30.5 pg (27.0-33.4); MEAN CORPUSCULAR HGB CONC 32.6 g/dL (32.0-36.0); MEAN CORPUSCULAR VOLUME 94 fl (80-97); MONOCYTES % (AUTO) 9.2 % (3-13); PLATELET COUNT 168 10^3/uL (150-450); RED BLOOD COUNT 4.33 10^6/uL (4.35-5.55); RED CELL DISTRIBUTION WIDTH 14.3 % (11.5-14.0); SEGMENTED NEUTROPHILS % (AUTO) 83.3 % (42-78); TOTAL CELLS COUNTED % (AUTO) 100 %; WHITE BLOOD COUNT 19.1 10^3/uL (4.0-10.5)
[2018-02-14 12:33] LABS: ANION GAP 15 (5-19); BLOOD UREA NITROGEN 22 mg/dL (7-20); CALCIUM 10.2 mg/dL (8.4-10.2); CARBON DIOXIDE 26 mmol/L (22-30); CHLORIDE 102 mmol/L (98-107); GLUCOSE 103 mg/dL (75-110); POTASSIUM 3.9 mmol/L (3.6-5.0); SODIUM 142.6 mmol/L (137-145)
[2018-02-14 13:53] LABS: APPEARANCE,URINE CLEAR; BILIRUBIN,URINE NEGATIVE (NEGATIVE); COLOR,URINE YELLOW; GLUCOSE, URINE NEGATIVE (NEGATIVE); KETONES,URINE NEGATIVE (NEGATIVE); LEUKOCYTE ESTERASE,URINE NEGATIVE (NEGATIVE); NITRITE,URINE NEGATIVE (NEGATIVE); PROTEIN,URINE 30 mg/dL (NEGATIVE); UROBILINOGEN,URINE NEGATIVE mg/dL (<2.0)
[2018-02-14] MEDS ORDERED: NORMAL SALINE 1000 ML 1,000 ML IV ONE (14:26)
[2018-02-14] MEDS ORDERED: LEVOFLOXACIN 750 MG/D5W RTU 750 MG/150 ML RTUPB IV ONE (14:27)
--- NOTE | 2018-02-14 18:25 | RADIOLOGY REPORT (SQ) ---
EXAM DESCRIPTION: CT CHEST WITH COMPLETED DATE/TIME: 02/14/2018 5:55 pm REASON FOR STUDY: Leukocytosis, COPD exacerbation, diarrhea COMPARISON: None. TECHNIQUE: CT scan of the chest performed using helical scanning technique with dynamic intravenous contrast injection. Images reviewed with lung, soft tissue and bone windows. Reconstructed coronal and sagittal MPR images reviewed. All images stored on PACS. All CT scanners at this facility use dose modulation, iterative reconstruction, and/or weight based d osing when appropriate to reduce radiation dose to as low as reasonably achievable (ALARA). [facility]: Dose Right [facility]: CareDose [facility]: Dose Right [facility]: Teradose 4D [facility]: [employer] CONTRAST TYPE AND DOSE: 59 mL Isovue 370- low osmolar. RENAL FUNCTION: BUN 22 creatinine 1.35 RADIATION DOSE: CT Rad equipment meets quality standard of care and radiation dose reduction techniq ues were employed. CTDIvol: 5.0 - 5.8 mGy. DLP: 624 mGy-cm. . LIMITATIONS: None. FINDINGS: LUNGS AND PLEURA: Mild centrilobular emphysematous changes. No infiltrate or pleural effu roselyn. Mild chronic interstitial changes in the lung bases. HILAR AND MEDIASTINAL STRUCTURES: No identified masses or abnormal nodes. HEART AND VASCULAR STRUCTURES: Mild aneurysmal dilatation of the ascending aorta with a diameter 42 m m. No dissection. No central pulmonary emboli. No pericardial effusion. HARDWARE: None in the chest. UPPER ABDOMEN: See separate report of the CT of the abdomen. THYROID AND OTHER SOFT TISSUES: The right lobe of the gland is enlarged and heterogeneous. BONES: No significant finding. OTHER: No other significant finding. IMPRESSION: 1. Mild chronic lung changes. 2. Enlarged, heterogeneous right lobe of the thyroid gland. 3. Mildly aneurysmal dilatation of the ascending aorta. This is stable. TECHNICAL DOCUMENTATION: JOB ID: [id number] Quality ID # [id number]: Final reports with documentation of one or more dose reduction techniques (e.g., Au tomated exposure control, adjustment of the mA and/or kV according to patient size, use of iterative reconstruction technique) 2010 [employer]- All Rights Reserved Reading location - IP/workstation name: [email or web address]
--- NOTE | 2018-02-14 18:30 | RADIOLOGY REPORT (SQ) ---
EXAM DESCRIPTION: CT ABD/PELVIS WITH IV ORAL COMPLETED DATE/TIME: 02/14/2018 5:55 pm REASON FOR STUDY: Leukocytosis, COPD exacerbation, diarrhea COMPARISON: 08/08/2017 TECHNIQUE: CT scan of the abdomen and pelvis performed using helical scanning technique with dynamic intravenous contrast injection. Oral contrast. Images reviewed with lung, soft tissue, and bone win dows. Reconstructed coronal and sagittal MPR images reviewed. Delayed images for evaluation of the ur inary system also acquired. All images stored on PACS. All CT scanners at this facility use dose modulation, iterative reconstruction, and/or weight based d osing when appropriate to reduce radiation dose to as low as reasonably achievable (ALARA). [facility]: Dose Right [facility]: CareDose [facility]: Dose Right [facility]: Teradose 4D [facility]: [employer] CONTRAST TYPE AND DOSE: contrast/concentration: Isovue 370.00 mg/ml; Total Contrast Delivered: 59.0 ml; Total Saline Delivered: 65.0 ml RENAL FUNCTION: BUN 22 creatinine 1.35 RADIATION DOSE: . LIMITATIONS: None. FINDINGS: LOWER CHEST: See separate report of the CT of the chest. LIVER: Normal size. No masses. No dilated ducts. SPLEEN: Normal size. No focal lesions. PANCREAS: No masses. No significant calcifications. No adjacent inflammation or peripancreatic fluid collections. Pancreatic duct not dilated. GALLBLADDER: Surgically absent. ADRENAL GLANDS: No significant masses or asymmetry. RIGHT KIDNEY AND URETER: 5 cm predominantly fat lesion arising from the mid to lower pole of the righ t kidney laterally. Cortical cysts. No significant calcifications. No hydronephrosis or hydroure ter. LEFT KIDNEY AND URETER: No solid masses. No significant calcifications. No hydronephrosis or hydr oureter. AORTA AND VESSELS: No aneurysm. No dissection. Renal arteries, SMA, celiac without stenosis. RETROPERITONEUM: No retroperitoneal adenopathy, hemorrhage or masses. BOWEL AND PERITONEAL CAVITY: No masses or inflammatory changes. No free fluid or peritoneal masses. APPENDIX: Surgically absent. PELVIS: No mass. No free fluid. Normal bladder. ABDOMINAL WALL: No masses. No hernias. BONES: Mild scoliosis. OTHER: No other significant finding. 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 TECHNICAL DOCUMENTATION: JOB ID: [id number] Quality ID # [id number]: Final reports with documentation of one or more dose reduction techniques (e.g., Au tomated exposure control, adjustment of the mA and/or kV according to patient size, use of iterative reconstruction technique) 2010 [employer]- All Rights Reserved Reading location - IP/workstation name: [email or web address]
[2018-02-14 19:41] LABS: FREE T3 2.99 pg/mL (2.77-5.27); FREE T4 (FREE THYROXINE) 1.66 ng/dL (0.78-2.19)
[2018-02-14 19:54] LABS: THYROID STIMULATING HORMONE 0.17 uIU/mL (0.47-4.68)
[2018-02-14 20:04] VITALS: BP 150/92
== END 2018-02-14 20:04 | disposition home or self-care (01) ==
LOC: ER 09:00
DX: J44.1 Chronic obstructive pulmonary disease with (acute) exacerbation (principal); R19.7 Diarrhea, unspecified; D72.829 Elevated white blood cell count, unspecified; R10.11 Right upper quadrant pain; I10 Essential (primary) hypertension; E11.9 Type 2 diabetes mellitus without complications; I71.4 Abdominal aortic aneurysm, without rupture; F17.200 Nicotine dependence, unspecified, uncomplicated; E78.00 Pure hypercholesterolemia, unspecified
CPT/HCPCS: 94640 ×2; 99284; 96365; 36415; 87040; 84439; 84443; 85025; 80048; 81001; 84481; 71046; 71260; 74177; J7030; J1956; A9270; J7620

== ENCOUNTER 2020-05-16 09:42 | Emergency (ER) | payer MEDICARE ==
--- NOTE | 2020-05-16 10:28 | ER Document Report ---
ED Medical Screen (RME) - General Chief Complaint: Foot Pain Stated Complaint: FOOT PAIN Time Seen by Provider: 05/16/20 10:22 Primary Care Provider: CHEY KIDD MD [Primary Care Provider] - Follow up as needed Mode of Arrival: Ambulatory Information source: Relative - Patient speaks Italian. Son is translating in the triage has been informed that he will need the non licensed operator line in the main ED Notes: 85-year-old male presents to ED for sore on the great toe times a month and a half. Son states that he has been trying to heal up but it will not heal. He states he thought he was diabetic but he rechecked a Accu-Chek in the triage and his sugar is 79. Son states he urinates constantly but he also drinks coffee constantly. Son states he was here for a while and then he went to stay with his son in [place] and they took him off all of his medications so he started getting back into see a doctor. He does have a history of colon cancer about 15 years ago and only had radiation treatment did not have surgery. He states he did have surgery on a kidney something to do with the blood vessel of the kidney but is not exactly sure what. He states he does have a aortic aneurysm in his chest. He states he does smoke a pack a day drinks less than once a year, and does not do any illicit drugs. I have greeted and performed a rapid initial assessment of this patient. A comprehensive ED assessment and evaluation of the patient, analysis of test results and completion of medical decision making process will be conducted by an additional ED providers. TRAVEL OUTSIDE OF THE U.S. IN LAST 30 DAYS: Yes - Related Data Allergies/Adverse Reactions: No Known Allergies Allergy (Verified 02/14/18 09:01) Past Medical History - Past Medical History Cardiac Medical History: Reports: Hx Hypercholesterolemia, Hx Hypertension Pulmonary Medical History: Reports: Hx COPD Neurological Medical History: Reports: Hx Cerebrovascular Accident Endocrine Medical History: Reports: Hx Diabetes Mellitus Type 2 Renal/ Medical History: Denies: Hx Peritoneal Dialysis Musculoskeltal Medical History: Reports Hx Muscle Weakness - Right lower extremity Past Surgical History: Reports: Other - Surgery for renal mass approximately 2 months ago Physical Exam - Vital signs Vitals: Temp Pulse Resp BP Pulse Ox 98.0 F 68 18 134/86 H 96 05/16/20 09:59 05/16/20 09:59 05/16/20 09:59 05/16/20 09:59 05/16/20 09:59 Course - Vital Signs Vital signs: Temp Pulse Resp BP Pulse Ox 98.0 F 68 18 134/86 H 96 05/16/20 09:59 05/16/20 09:59 05/16/20 09:59 05/16/20 09:59 05/16/20 09:59 Doctor's Discharge - Discharge Referrals: CHEY KIDD MD [Primary Care Provider] - Follow up as needed
--- NOTE | 2020-05-16 10:57 | RADIOLOGY REPORT (SQ) ---
EXAM DESCRIPTION: FOOT RIGHT COMPLETE IMAGES COMPLETED DATE/TIME: 05/16/2020 10:43 am REASON FOR STUDY: ulcer to right great toe x1-1/2 months COMPARISON: None. NUMBER OF VIEWS: Three views right foot LIMITATIONS: None. FINDINGS: There is no acute or significant bone, joint or soft tissue abnormality. No erosions or f racture. OTHER: Bipartite hallux medial sesamoid. Mild great toe degenerative narrowing and spurring at the M P joint. IMPRESSION: No acute findings. TECHNICAL DOCUMENTATION: JOB ID: [id number] Reading location - IP/workstation name: [email or web address]
--- NOTE | 2020-05-16 11:38 | RADIOLOGY REPORT (SQ) ---
EXAM DESCRIPTION: CHEST 2 VIEWS IMAGES COMPLETED DATE/TIME: 05/16/2020 10:43 am REASON FOR STUDY: hx of "aneurysm in his chest " COMPARISON: 02/14/2018 EXAM PARAMETERS: NUMBER OF VIEWS: two views TECHNIQUE: Digital Frontal and Lateral radiographic views of the chest acquired. RADIATION DOSE: NA LIMITATIONS: none FINDINGS: LUNGS AND PLEURA: Hyper aeration with flattening of the hemidiaphragms and increased AP di ameter of the chest. No focal consolidation, pleural effusion, or pneumothorax. MEDIASTINUM AND HILAR STRUCTURES: Stable contours demonstrating uncoiling of the thoracic aorta. HEART AND VASCULAR STRUCTURES: Heart normal size. No evidence for failure. BONES: No acute findings. HARDWARE: None in the chest. OTHER: No other significant finding. IMPRESSION: Chronic emphysematous changes. No evidence of acute cardiopulmonary abnormality. TECHNICAL DOCUMENTATION: JOB ID: [id number] 2010 [employer]- All Rights Reserved Reading location - IP/workstation name: [email or web address]
[2020-05-16 11:55] LABS: APPEARANCE,URINE CLEAR; BILIRUBIN,URINE NEGATIVE (NEGATIVE); COLOR,URINE YELLOW; GLUCOSE, URINE NEGATIVE (NEGATIVE); KETONES,URINE NEGATIVE (NEGATIVE); LEUKOCYTE ESTERASE,URINE NEGATIVE (NEGATIVE); NITRITE,URINE NEGATIVE (NEGATIVE); PROTEIN,URINE NEGATIVE (NEGATIVE); URINE SPECIFIC GRAVITY 1.006; UROBILINOGEN,URINE NEGATIVE mg/dL (<2.0)
[2020-05-16 14:07] LABS: ABSOLUTE BASOPHILS # (AUTO) 0.1 10^3/uL (0.0-0.2); ABSOLUTE EOSINOPHILS # (AUTO) 0.4 10^3/uL (0.0-0.6); ABSOLUTE LYMPHOCYTES (AUTO) 2.4 10^3/uL (0.5-4.7); ABSOLUTE MONOCYTES (AUTO) 0.8 10^3/uL (0.1-1.4); ABSOLUTE NEUT (AUTO) 6.9 10^3/uL (1.7-8.2); BASOPHILS % (AUTO) 0.8 % (0-2); EOSINOPHILS % (AUTO) 3.6 % (0-6); HEMATOCRIT 43.6 % (37.9-51.0); LYMPHOCYTES % (AUTO) 22.8 % (13-45); MEAN CORPUSCULAR HEMOGLOBIN 32.6 pg (27.0-33.4); MEAN CORPUSCULAR HGB CONC 34.4 g/dL (32.0-36.0); MEAN CORPUSCULAR VOLUME 95 fl (80-97); MONOCYTES % (AUTO) 7.5 % (3-13); PLATELET COUNT 169 10^3/uL (150-450); RED CELL DISTRIBUTION WIDTH 15.8 % (11.5-14.0); SEGMENTED NEUTROPHILS % (AUTO) 65.3 % (42-78); TOTAL CELLS COUNTED % (AUTO) 100 %; WHITE BLOOD COUNT 10.6 10^3/uL (4.0-10.5)
[2020-05-16 14:28] LABS: ALBUMIN 4.3 g/dL (3.5-5.0); ALKALINE PHOSPHATASE 81 U/L (38-126); ANION GAP 5 (5-19); ASPARTATE AMINO TRANSFERASE 26 U/L (17-59); BILIRUBIN,DIRECT 0.3 mg/dL (0.0-0.4); BILIRUBIN,TOTAL 0.7 mg/dL (0.2-1.3); BLOOD UREA NITROGEN 23 mg/dL (7-20); CALCIUM 10.3 mg/dL (8.4-10.2); CARBON DIOXIDE 34 mmol/L (22-30); CHLORIDE 101 mmol/L (98-107); GLUCOSE 90 mg/dL (75-110); POTASSIUM 5.2 mmol/L (3.6-5.0); TOTAL PROTEIN 7.9 g/dL (6.3-8.2)
--- NOTE | 2020-05-16 14:29 | ER Document Report ---
ED General - General Chief Complaint: Wound Infection Stated Complaint: FOOT PAIN Time Seen by Provider: 05/16/20 10:22 Primary Care Provider: CHEY KIDD MD [Primary Care Provider] - Follow up as needed Mode of Arrival: Ambulatory Information source: Patient Notes: 05/16/20 10:16 - ED Nursing Note by TRACI HARLEYt Num: [id number] : 1935 Patient Age: 85 Pt arrives to Er today for c/o sore to right great toe that is not healing pt has had sore for past month, pt is unsure if he is diabetic, pt son states pt also has intermittent sharp pain down into foot pt has also been having frequent urination, pt has hx of colon CA. pt right great toe noted to have circular 1cm wound with escar tissue in the center no drainage at this time. ED Medical Screen (Brando notes) - General Chief Complaint: Foot Pain Stated Complaint: FOOT PAIN Time Seen by Provider: 05/16/20 10:22 Primary Care Provider: CHEY KIDD MD [Primary Care Provider] - Follow up as needed Mode of Arrival: Ambulatory Information source: Relative - Patient speaks [place]. Son is translating in the triage has been informed that he will need the paperhanger apprentice line in the main ED Notes: 85-year-old male presents to ED for sore on the great toe times a month and a half. Son states that he has been trying to heal up but it will not heal. He states he thought he was diabetic but he rechecked a Accu-Chek in the triage and his sugar is 79. Son states he urinates constantly but he also drinks coffee constantly. Son states he was here for a while and then he went to stay with his son in [place] and they took him off all of his medications so he started getting back into see a doctor. He does have a history of colon cancer about 15 years ago and only had radiation treatment did not have surgery. He states he did have surgery on a kidney something to do with the blood vessel of the kidney but is not exactly sure what. He states he does have a aortic aneurysm in his chest. He states he does smoke a pack a day drinks less than once a year, and does not do any illicit drugs. MY NOTES 85-year-old male from [facility] arrives with his son who is main caregiver. Patient has had 1 month history of a ischemic wound to his first large toe medial area. The wound is approximately 1 cm diameter ulceration. X-ray today was without any osteomyelitis. Patient also has a history of neuropathy nondiabetic type. Patient sees Dr. Kidd as his PMD. Patient has had some swelling of his foot over the last month. He tends to wear his flip- flops outside against the advice of his son who tries to keep the wound covered. Patient is a smoker 1 pack/day since he was a teenager. He denies any alcohol. Patient also has pain of neuropathy type that is not well taken care of by medication. His son is the main spokesperson because the patient only speaks mainly [place]olan. Patient appears to understand much of what I say however. Patient denies any fever chills cough cold symptoms. His blood sugar today is within normal limits and his CBC is within normal limits except for slightly elevated WBC. TRAVEL OUTSIDE OF THE [place] IN LAST 30 DAYS: Yes - HPI Onset: Other - x 1 month Onset/Duration: Sudden Quality of pain: Achy, Fullness Severity: Mild Pain Level: 1 Associated symptoms: None Exacerbated by: Movement Relieved by: Denies Similar symptoms previously: No Recently seen / treated by doctor: No - Related Data Allergies/Adverse Reactions: No Known Allergies Allergy (Verified 02/14/18 09:01) Past Medical History - General Information source: Relative - Patient speaks [place]olan. Son is translating in the triage has been informed that he will need the paperhanger apprentice line in the main ED - Social History Smoking Status: Current Every Day Smoker Cigarette use (# per day): Yes Chew tobacco use (# tins/day): No Smoking Education Provided: Yes Frequency of alcohol use: None Drug Abuse: None Lives with: Family Family History: Hypertension Patient has suicidal ideation: No Patient has homicidal ideation: No - Past Medical History Cardiac Medical History: Reports: Hx Hypercholesterolemia, Hx Hypertension Pulmonary Medical History: Reports: Hx COPD Neurological Medical History: Reports: Hx Cerebrovascular Accident Endocrine Medical History: Reports: Hx Diabetes Mellitus Type 2 Renal/ Medical History: Denies: Hx Peritoneal Dialysis Musculoskeletal Medical History: Reports Hx Muscle Weakness - Right lower extremity Past Surgical History: Reports: Hx Kidney (Renal Surgery) - kidney blood vessel, cyst on kidney, Other - Surgery for renal mass approximately 2 months ago Review of Systems - Review of Systems Constitutional: No symptoms reported EENT: No symptoms reported Cardiovascular: No symptoms reported Respiratory: No symptoms reported Gastrointestinal: No symptoms reported Genitourinary: No symptoms reported Male Genitourinary: No symptoms reported Musculoskeletal: See HPI, Joint swelling Skin: See HPI, Other - skin lesion as per HPI along medial aspect of first large toe right foot. Hematologic/Lymphatic: No symptoms reported Neurological/Psychological: See HPI, Numbness - yoni feet Physical Exam - Vital signs Vitals: Temp Pulse Resp BP Pulse Ox 98.0 F 68 18 134/86 H 96 05/16/20 09:59 05/16/20 09:59 05/16/20 09:59 05/16/20 09:59 05/16/20 09:59 Interpretation: Hypertensive - General General appearance: Appears well, Alert - HEENT Head: Normocephalic, Atraumatic Eyes: Normal Pupils: PERRL Nasal: Normal Mouth/Lips: Normal Mucous membranes: Normal Pharynx: Normal Neck: Carotid bruit - Respiratory Respiratory status: No respiratory distress Chest status: Nontender Breath sounds: Normal Chest palpation: Normal - Cardiovascular Rhythm: Regular Heart sounds: Normal auscultation Murmur: No - Abdominal Inspection: Normal Distension: No distension Bowel sounds: Normal Tenderness: Nontender Organomegaly: No organomegaly - Rectal Prostate: Other - deferred - Back Back: Normal - Extremities General upper extremity: Normal inspection General lower extremity: Other - cool to touch and dec dorsalis pedis DP and post tib pp - Neurological Neuro grossly intact: Yes Cognition: Normal Orientation: AAOx4 [place] Coma Scale Eye Opening: Spontaneous [place] Coma Scale Verbal: Oriented [place] Coma Scale Motor: Obeys Commands [place] Coma Scale Total: 15 Speech: Normal Motor strength normal: LUE, RUE, LLE, RLE Sensory: Normal - Psychological Associated symptoms: Normal affect - Skin Skin Temperature: Warm Skin Moisture: Dry Skin Color: Other - as per PE Course - Vital Signs Vital signs: Temp Pulse Resp BP Pulse Ox 98.0 F 68 18 134/86 H 96 05/16/20 09:59 05/16/20 09:59 05/16/20 09:59 05/16/20 09:59 05/16/20 09:59 - Laboratory Result Diagrams: 05/16/20 13:50 05/16/20 13:50 Laboratory results interpreted by me: 05/16/20 05/16/20 13:50 13:50 WBC 10.6 H RDW 15.8 H Potassium 5.2 H Carbon Dioxide 34 H BUN 23 H Creatinine 1.35 H Est GFR (MDRD) Non-Af 50 L Calcium 10.3 H - Diagnostic Test Radiology reviewed: Reports reviewed Discharge - Discharge Clinical Impression: Neuropathy, Fat pad atrophy of foot Toe ulcer Qualifiers: Laterality: right Non-pressure ulcer stage: limited to breakdown of skin Qualified Code(s): L97.511 - Non-pressure chronic ulcer of other part of right foot limited to breakdown of skin Condition: Good Disposition: HOME, SELF-CARE Additional Instructions: Follow-up with Dr. Kidd your personal doctor and with jewel gauger of choice here in town. Try to keep your wound dressed while outside so to limit infection to your wound. Also try chewable vitamin C with your meal on a daily basis to help with any wound tissue healing. Continue with your B vitamins. Try to decrease your smoking because of peripheral artery disease. May use Voltaren gel on the dorsum of your foot to help with neuropathy. Try to use an area the size of a quarter to begin with. Do not apply this to the affected wound. Keep the wound clean and dry. Prescriptions: Cephalexin Monohydrate [Keflex 500 mg Capsule] 500 mg PO BID 10 Days #20 capsule Pentoxifylline [Trental 400 Mg Tablet.Sa] 400 mg PO DAILY #30 tablet.sa Forms: Smoking Cessation Education Referrals: CHEY KIDD MD [Primary Care Provider] - Follow up as needed Print Language: [place]olan
[2020-05-16 15:11] VITALS: BP 165/81
== END 2020-05-16 15:12 | disposition home or self-care (01) ==
LOC: ER 09:42
DX: E11.621 Type 2 diabetes mellitus with foot ulcer (principal); L97.511 Non-pressure chronic ulcer of other part of right foot limited to breakdown of skin; G62.9 Polyneuropathy, unspecified; D72.829 Elevated white blood cell count, unspecified; R35.0 Frequency of micturition; I10 Essential (primary) hypertension; J44.9 Chronic obstructive pulmonary disease, unspecified; F17.210 Nicotine dependence, cigarettes, uncomplicated; Z85.038 Personal history of other malignant neoplasm of large intestine; Z92.3 Personal history of irradiation
CPT/HCPCS: 36415; 71046; 80053; 81001; 82962; 83690; 85025; 87040; 87086; 99284